=== PATIENT | male | born 1990 | race Caucasian/White ===

== ENCOUNTER → 2021-08-13 18:16 | Outpatient (BNVA) | payer OTHER, SELFPAY | PROVIDERS: PCP Nurse Practitioner Family; Visit Provider Registered Nurse Neonatal Intensive Care | DX: N39.0 Urinary tract infection, site not specified (principal) | CPT/HCPCS: 81000; 87086; 87491; 87591 ==

== ENCOUNTER → 2021-08-22 12:11 | Outpatient (BNVA) | payer OTHER, SELFPAY | PROVIDERS: PCP Nurse Practitioner Family; Visit Provider Nurse Practitioner Family | DX: Z20.822 Contact with and (suspected) exposure to COVID-19 (principal) | CPT/HCPCS: 87635 ==

== ENCOUNTER → 2021-09-24 10:01 | Outpatient (BNVA) | payer OTHER, SELFPAY | PROVIDERS: PCP Nurse Practitioner Family; Referring Provider Dermatology; Visit Provider Podiatrist Foot & Ankle Surgery | DX: M79.672 Pain in left foot (principal); M79.671 Pain in right foot; M77.31 Calcaneal spur, right foot; M77.32 Calcaneal spur, left foot | CPT/HCPCS: 73630 ==

== ENCOUNTER → 2021-10-29 11:54 | Outpatient (BNVA) | payer OTHER, SELFPAY | PROVIDERS: PCP Nurse Practitioner Family; Visit Provider Nurse Practitioner | DX: R05.9 Cough, unspecified (principal) | CPT/HCPCS: 87400 ==

== ENCOUNTER 2021-11-19 14:52 | Outpatient (CLI) | payer OTHER, SELFPAY | END 2021-11-19 14:53 | disposition home or self-care (01) | LOC: SPT 14:53 | PROVIDERS: PCP Nurse Practitioner Family; Visit Provider Podiatrist Foot & Ankle Surgery | DX: Z46.89 Encounter for fitting and adjustment of other specified devices (principal); G57.63 Lesion of plantar nerve, bilateral lower limbs | CPT/HCPCS: 97760; L3030 ==

== ENCOUNTER → 2025-07-06 09:01 | Outpatient (BNVA) | payer OTHER, SELFPAY | PROVIDERS: PCP Family Medicine Adult Medicine; Visit Provider Podiatrist Foot & Ankle Surgery | DX: M21.622 Bunionette of left foot (principal); M21.621 Bunionette of right foot; L84 Corns and callosities | CPT/HCPCS: 73630 ==